=== PATIENT | male | born 1990 | race Two or more races ===

== ENCOUNTER 2019-01-28 20:06 | Inpatient (IN) | payer OTHER ==
[~2019-01-28] VITALS: Ht 177.8 cm; Wt 89.8 kg
[2019-02-06] MEDS ORDERED: ACIDOPHILUS-PE1 EAC2 PO (09:37)
== END 2019-02-06 11:54 | disposition home or self-care (01) | DRG 391 ==
LOC: ER 20:06 → SURG 01-29 10:08
PROVIDERS: ADMIT Internal Medicine
PROC: BW21ZZZ Computerized Tomography (CT Scan) of Abdomen and Pelvis (ICD-10-PCS; principal; 2019-02-04)
DX: K57.20 Diverticulitis of large intestine with perforation and abscess without bleeding (principal); K65.1 Peritoneal abscess

== ENCOUNTER 2025-02-10 15:52 | Inpatient (IN) | payer OTHER ==
[~2025-02-10] VITALS: Ht 177.8 cm; Wt 92.1 kg
[~2025-02-10 15:52] MED LIST: ACIDOPHILUS-PE1 EAC2 PO
[2025-02-10] MEDS ORDERED: 0.9 % SODIUM CHLORIDE 1,000 ML IV STA (16:03)
[2025-02-10 16:46] LABS: BASO % 0.5 % (0.1-1.2); EOS # 0.06 (0.04-0.54); EOS % 0.4 % (0.7-7.0); HEMATOCRIT 39.3 % (40.1-51.0); HEMOGLOBIN 13.3 g/dL (13.7-17.5); LYMPH # 2.54 (1.18-3.74); MEAN CORPUSCULAR HEMOGLOBIN 29.8 pg (25.6-32.2); MONO # 1.18 (0.24-0.82); NEUT # 13.03 (1.56-6.13); NEUT % 76.8 % (34.0-71.1); PLATELET COUNT 341 K/uL (163-369); RED BLOOD COUNT 4.46 M/uL (4.63-6.08); RED CELL DISTRIBUTION WIDTH 12.5 % (11.6-14.4)
[2025-02-10] MEDS ORDERED: 0.9 % SODIUM CHLORIDE 1,000 ML IV ONE (17:15)
[2025-02-10] MEDS ORDERED: 0.9 % SODIUM CHLORIDE 1,000 ML IV SCH (17:15)
[2025-02-10 17:18] LABS: INR 1.19; PARTIAL THROMBOPLASTIN TIME 32.5 SECONDS (22.0-34.0); PROTHROMBIN TIME 12.8 SECONDS (9.0-11.5)
[2025-02-10] MEDS ORDERED: FAMOTIDINE/PF 20 MG in 0.9 % SODIUM CHLORIDE 8 ML IV PUSH SCH (17:21)
[2025-02-10 17:24] LABS: POTASSIUM 3.75 mEq/L (3.5-5.1)
[2025-02-10] MEDS ORDERED: ONDANSETRON HCL 4 MG in 0.9 % SODIUM CHLORIDE 50 ML IV PRN (17:30)
[2025-02-10] MEDS ORDERED: ACETAMINOPHEN 500 MG GEL..CAP PO PRN (17:30)
[2025-02-10] MEDS ORDERED: MORPHINE SULFATE 4 MG/ML CARTRIDGE IV PRN (17:30)
[2025-02-10 17:33] LABS: ALBUMIN 3.3 gm/dL (3.4-5.0); BILIRUBIN TOTAL 1.56 mg/dL (0.3-1.2); CALCIUM 9.2 mg/dL (8.5-10.1); CREATININE SERUM 0.74 mg/dL (0.70-1.30); GFR 122.57; GLOBULINA 4.5 G/DL (2.4-3.5); TOTAL PROTEIN 7.8 gm/dL (6.4-8.2)
[2025-02-10 17:47] LABS: COVID-19 AG NEGATIVE (NEGATIVE)
[2025-02-10] MEDS ORDERED: PIPERACILLIN/TAZOBACTAM SODIUM 3.375 GM in 0.9 % SODIUM CHLORIDE 100 ML IV SCH (18:00)
[2025-02-10 18:55] LABS: C-REACTIVE PROTEIN 28.4 MG/DL (0.00-0.29)
[2025-02-10 19:11] VITALS: BP 128/78; O2SAT 98
[2025-02-10 19:59] LABS: URINE APPEARANCE Clear; URINE BILIRRUBIN Negative (NEGATIVE); URINE BLOOD Small; URINE COLOR Yellow; URINE GLUCOSE Negative (NEGATIVE); URINE LEUKOCYTE Negative; URINE NITRATE Negative; URINE PROTEIN Trace (NEGATIVE)
[2025-02-10 20:00] LABS: URINE BACTERIA 7.3 uL (0.0-1933); URINE CAST 0.14 uL (0.0-1.40); URINE EPITHELIAL CELLS 6.8 uL (0.0-38.8); URINE KETONE >=160 (NEGATIVE); URINE RBC 16.6 uL (0.0-20.8); URINE WBC 7.7 uL (0.0-23.2)
[2025-02-11] VITALS: BP 120/51; O2SAT 96
[2025-02-11 08:00] VITALS: BP 137/76; O2SAT 97
[2025-02-11] MEDS ORDERED: DIATRIZOATE MEGLUMINE, SODIUM 30 ML BOTTLE PO STA (08:32)
[2025-02-11] MEDS ORDERED: ENOXAPARIN SODIUM 40 MG/0.4 ML SYRINGE SUBCUTANEO SCH (09:00)
[2025-02-11 14:09] LABS: CHOL HDL RATIO 3.8 (0-5.0); CREATININE SERUM 0.7 mg/dL (0.70-1.30); GFR 130.69; POTASSIUM 3.98 mEq/L (3.5-5.1)
[2025-02-11] MEDS ORDERED: AA 4.25%/CAL/LYTES/DEXT 5% 1,000 ML PERIFERAL SCH (17:00)
[2025-02-12 01:21] VITALS: BP 123/83; O2SAT 100
[2025-02-12 08:16] LABS: BASO % 0.9 % (0.1-1.2); EOS # 0.29 (0.04-0.54); EOS % 2.8 % (0.7-7.0); HEMATOCRIT 40.7 % (40.1-51.0); HEMOGLOBIN 13.7 g/dL (13.7-17.5); LYMPH # 2.67 (1.18-3.74); LYMPH % 25.9 % (19.3-53.1); MEAN CORPUSCULAR HEMOGLOBIN 29.8 pg (25.6-32.2); MONO # 0.96 (0.24-0.82); MONO % 9.3 % (4.7-12.5); NEUT # 6.26 (1.56-6.13); NEUT % 60.8 % (34.0-71.1); PLATELET COUNT 429 K/uL (163-369); RED CELL DISTRIBUTION WIDTH 12.3 % (11.6-14.4)
[2025-02-12 08:48] VITALS: BP 144/86; O2SAT 100
[2025-02-12 08:48] LABS: ALBUMIN 3.4 gm/dL (3.4-5.0); BILIRUBIN TOTAL 1.09 mg/dL (0.3-1.2); CALCIUM 9.3 mg/dL (8.5-10.1); CREATININE SERUM 0.69 mg/dL (0.70-1.30); GFR 132.88; MAGNESIUM 2.3 mg/dL (1.8-2.4); PHOSPHOROUS 3.6 mg/dL (2.5-4.9); POTASSIUM 4.43 mEq/L (3.5-5.1); TOTAL PROTEIN 7.4 gm/dL (6.4-8.2)
[2025-02-12 08:49] LABS: C-REACTIVE PROTEIN 12.2 MG/DL (0.00-0.29)
[2025-02-12 16:30] VITALS: BP 128/81; O2SAT 99
[2025-02-12] MEDS ORDERED: LACTOBACILLUS ACIDOPHILUS 1 CAP CAP PO SCH (17:00)
[2025-02-13 00:48] VITALS: BP 112/67; O2SAT 100
[2025-02-13 07:30] VITALS: BP 125/71; O2SAT 96
[2025-02-13 16:42] VITALS: BP 138/76; O2SAT 98
[2025-02-14] VITALS: BP 113/67; O2SAT 96
[2025-02-14 09:03] VITALS: BP 124/73; O2SAT 97
[2025-02-14] MEDS ORDERED: DEXTROSE 5 % IN WATER 1,000 ML IV SCH (09:30)
[2025-02-14 13:43] LABS: BASO % 0.8 % (0.1-1.2); EOS # 0.22 (0.04-0.54); EOS % 2.1 % (0.7-7.0); HEMATOCRIT 42.5 % (40.1-51.0); HEMOGLOBIN 14.6 g/dL (13.7-17.5); LYMPH % 24.3 % (19.3-53.1); MEAN CORPUSCULAR HEMOGLOBIN 29.3 pg (25.6-32.2); MONO # 0.67 (0.24-0.82); MONO % 6.3 % (4.7-12.5); NEUT # 7.07 (1.56-6.13); NEUT % 66.1 % (34.0-71.1); PLATELET COUNT 460 K/uL (163-369); RED BLOOD COUNT 4.98 M/uL (4.63-6.08); RED CELL DISTRIBUTION WIDTH 12.2 % (11.6-14.4)
[2025-02-14 14:18] LABS: ALBUMIN 3.6 gm/dL (3.4-5.0); BILIRUBIN TOTAL 0.63 mg/dL (0.3-1.2); CALCIUM 9.1 mg/dL (8.5-10.1); CREATININE SERUM 0.64 mg/dL (0.70-1.30); GFR 144.93; GLOBULINA 4.2 G/DL (2.4-3.5); POTASSIUM 3.85 mEq/L (3.5-5.1); TOTAL PROTEIN 7.8 gm/dL (6.4-8.2)
[2025-02-14 16:00] VITALS: BP 138/90; O2SAT 96
[2025-02-15 03:40] VITALS: BP 116/76; O2SAT 100
[2025-02-15 08:03] VITALS: BP 116/71; O2SAT 96
[2025-02-15] MEDS ORDERED: DIATRIZOATE MEGLUMINE, SODIUM 30 ML BOTTLE PO NR (12:00)
[2025-02-15 16:36] VITALS: BP 119/72; O2SAT 97
[2025-02-16 00:32] VITALS: BP 101/61
[2025-02-16 08:16] VITALS: BP 122/79; O2SAT 96
[2025-02-16 16:35] VITALS: BP 120/80; O2SAT 97
[2025-02-17 00:51] VITALS: BP 118/79; O2SAT 98
[2025-02-17 00:52] VITALS: BP 117/75; BP 118/79; O2SAT 96; O2SAT 98
[2025-02-17 08:00] VITALS: BP 123/74; O2SAT 97
== END 2025-02-17 12:44 | disposition home or self-care (01) | DRG 392 ==
LOC: ER 15:52 → SURG 18:06 → SEC-K 18:06 → SURG 18:11
PROVIDERS: Emergency Medicine; General Practice; Internal Medicine; Internal Medicine Infectious Disease; ADMIT Internal Medicine; ATTEND Internal Medicine
PROC: BW21YZZ Computerized Tomography (CT Scan) of Abdomen and Pelvis using Other Contrast (ICD-10-PCS; principal; 2025-02-10)
PROC: 3E0336Z Introduction of Nutritional Substance into Peripheral Vein, Percutaneous Approach (ICD-10-PCS; 2025-02-11)
PROC: 02HV33Z Insertion of Infusion Device into Superior Vena Cava, Percutaneous Approach (ICD-10-PCS; 2025-02-13)
PROC: B548ZZA Ultrasonography of Superior Vena Cava, Guidance (ICD-10-PCS; 2025-02-13)
PROC: BW21YZZ Computerized Tomography (CT Scan) of Abdomen and Pelvis using Other Contrast (ICD-10-PCS; 2025-02-15)
DX: K57.32 Diverticulitis of large intestine without perforation or abscess without bleeding (principal); D72.829 Elevated white blood cell count, unspecified